=== PATIENT | female | born 1955 | race Two or more races ===

== ENCOUNTER 2020-06-17 00:25 | Emergency (ER) | payer SELFPAY ==
[~2020-06-17] VITALS: Ht 157.5 cm; Wt 88.5 kg
[2020-06-17] MEDS ORDERED: TRAM50TA PO (00:46)
--- NOTE | 2020-06-17 00:46 | ED.ADGEN ---
General Adult EDM: Chief Complaint: LOWER EXT PAIN HPI: HPI: Patient is a 65 year old female coming in for left ankle pain and swelling, about 25 minutes prior to arrival she was in the kitchen and tripped having an inversion injury of her left ankle. Has not been out of bear weight since. No other injuries, didn't hit her head. Otherwise been well Review of Systems: Review of Systems: Constitutional: Denies fever or chills. [] Eyes: Denies change in visual acuity. [] HENT: Denies nasal congestion or sore throat. [] Respiratory: Denies cough or shortness of breath. [] Cardiovascular: Denies chest pain or edema. [] GI: Denies abdominal pain, nausea, vomiting, bloody stools or diarrhea. [] : Denies dysuria. [] Musculoskeletal: Denies back pain but has left ankle pain and swelling Integument: Denies rash. [] Neurologic: Denies headache, focal weakness or sensory changes. [] Endocrine: Denies polyuria or polydipsia. [] Lymphatic: Denies swollen glands. [] Psychiatric: Denies depression or anxiety. [] Current Medications: Current Medications Medications (Trade) Dose Ordered Sig/Darcy Start Time Stop Time Status Last Admin Dose Admin Tramadol HCl (Ultram) 50 mg 1X ONCE 06/17/20 01:00 06/17/20 01:01 DC Allergies: Allergies: Allergies Coded Allergies Type Severity Reaction Last Updated Verified No Known Drug Allergies 06/17/20 No Physical Exam: PE: Constitutional: Well developed, well nourished, no acute distress, non-toxic appearance. [] HENT: Normocephalic, atraumatic, bilateral external ears normal, oropharynx moist, no oral exudates, nose normal. [] Eyes: PERRLA, EOMI, conjunctiva normal, no discharge. [] Neck: Normal range of motion, no tenderness, supple, no stridor. [] Cardiovascular:Heart rate regular rhythm, no murmur [] Lungs & Thorax: Bilateral breath sounds clear to auscultation [] Abdomen: Bowel sounds normal, soft, no tenderness, no masses, no pulsatile masses. [] Skin: Warm, dry, no erythema, no rash. [] Back: No tenderness, no CVA tenderness. [] Extremities: Tenderness to left ankle lateral and medial malleolus, no tenderness over the fifth metatarsal heel, no tender over the dorsum of the foot. No knee pain, no pain elicited on squeeze test. Neurologic: Alert and oriented X 3, normal motor function, normal sensory function, no focal deficits noted. [] Psychologic: Affect normal, judgement normal, mood normal. [] Current Patient Data: Vital Signs: Vital Signs Date Time Temp Pulse Resp B/P (MAP) Pulse Ox O2 Delivery O2 Flow Rate FiO2 06/17/20 00:51 98.4 69 20 161/87 (111) 94 Room Air 98.4 EKG: EKG: [] Heart Score: Risk Factors: Risk Factors: DM, Current or recent (<one month) smoker, HTN, HLP, family history of CAD, obesity. Risk Scores: Score 0 - 3: 2.5% MACE over next 6 weeks - Discharge Home Score 4 - 6: 20.3% MACE over next 6 weeks - Admit for Clinical Observation Score 7 - 10: 72.7% MACE over next 6 weeks - Early Invasive Strategies Radiology/Procedures: Radiology/Procedures: [] Course & Med Decision Making: Course & Med Decision Making Pertinent Labs and Imaging studies reviewed. (See chart for details) [] Dragon Disclaimer: Dragon Disclaimer: This electronic medical record was generated, in whole or in part, using a voice recognition dictation system. Departure Departure Impression: Primary Impression: Injury of left ankle Disposition: 01 DC HOME SELF CARE/HOMELESS Condition: STABLE Referrals: NO PCP (PCP) Prov [facility] Patient Instructions: Cast or Splint Care Scripts Tramadol Hcl (TRAMADOL HCL) 50 Mg Tablet 50 MG PO Q6HRS PRN for PAIN for 5 Days, #15 TAB Prov: DEXTER MARRUFO MD 06/17/20 DEXTER MARRUFO MD Jun 17, 2020 00:46
[2020-06-17 00:51] VITALS: BP 161/87
[2020-06-17] MEDS ORDERED: traMADol 50 MG TABLET PO ONE (01:00)
--- NOTE | 2020-06-17 05:18 | RAD ---
ANKLE LEFT 3V History: Reason: fall / Spl. Instructions: / History: . Pain Technique: 3 views left ankle. Comparison: None. Findings: Severe ankle soft tissue swelling. Acute minimally displaced medial malleolus fracture. Acute oblique displaced distal fibular fracture. Tiny plantar calcaneal spur. Ankle joint effusion. Symmetric ankle mortise. Impression: 1. Acute bimalleolar ankle fractures. 2. Severe ankle soft tissue swelling. Electronically signed by: Girish Mims DO (06/17/2020 5:14 AM) VIKAS
== END 2020-06-17 02:05 | disposition home or self-care (01) ==
LOC: ER 00:25
DX: S99.912A Unspecified injury of left ankle, initial encounter (principal); W18.49XA Other slipping, tripping and stumbling without falling, initial encounter; Y93.89 Activity, other specified; Y92.090 Kitchen in other non-institutional residence as the place of occurrence of the external cause; Y99.8 Other external cause status
CPT/HCPCS: 29515; 73610; 99284